=== PATIENT | female | born 1995 | race Two or more races ===

== ENCOUNTER 2024-08-12 14:54 | Emergency (ER) | payer MEDICAID, SELFPAY ==
[2024-08-12 14:56] VITALS: BMI 35.0
[2024-08-12 15:13] VITALS: BP 129/86; PULSE 97; RESP 18; TEMP 37.6; O2SAT 96
--- NOTE | 2024-08-12 15:18 | PD.EDADULT ---
ED General RME/HPI General Chief complaint: General Adult/Misc Complain Stated complaint: GOT SHOT AT DENTIST; NOW FEELS NUMB ON R) SIDE Time Seen by Provider: 08/12/24 15:07 Arrival date/time: 08/12/24 14:54 29-year-old female presents emergency department today stating that she had an injection in her mouth at the dentist today patient reports that immediately she had numbing sensation to the right side of her head and right side of her face patient reports since then symptoms have resolved but wanted to make sure everything is okay Limitations: no limitations Related Data Previous Rx's ?Medication ?Instructions ?Recorded ibuprofen 600 mg tablet 600 mg PO TID PRN Abdominal Pain 04/12/17 #30 tabs cyclobenzaprine 10 mg tablet 10 mg PO TID PRN muscle spasm #30 01/13/19 tabs ibuprofen 800 mg tablet 800 mg PO TID PRN pain #30 tabs 01/13/19 Allergies Allergy/AdvReac Type Severity Reaction Status Date / Time No Known Allergies Allergy Verified 08/12/24 14:58 Review of Systems Review of Systems Systems Reviewed: All systems reviewed, normal except as documented Constitutional Constitutional: Reports system reviewed and no additional complaints, except as documented, Denies fever(s) and Denies headache(s) Eyes Eyes: Reports system reviewed and no additional complaints, except as documented and Denies blurry vision ENT Ears, Nose, Mouth, and Throat: Reports system reviewed and no additional complaints, except as documented, Denies headache(s), Denies nasal congestion and Denies nasal discharge Cardiovascular Cardiovascular: Reports system reviewed and no additional complaints, except as documented, Denies chest pain and Denies dyspnea Respiratory Respiratory: Reports system reviewed and no additional complaints, except as documented, Denies chest congestion, Denies cough and Denies dyspnea Gastrointestinal Gastrointestinal: Reports system reviewed and no additional complaints, except as documented and Denies abdominal pain Integumentary/Breasts Skin/Breast: Reports system reviewed and no additional complaints, except as documented and Denies rash Neurologic Neurologic: Reports system reviewed and no additional complaints, except as documented, Reports as per HPI and Denies headache(s) Psychiatric Psychiatric: Reports system reviewed and no additional complaints, except as documented and Reports other (Paresthesia right side of face) Past Medical History Social History SMOKING STATUS: Never smoker ED Exam General Limitations: Present no limitations General appearance: Present alert and in no apparent distress Head Head exam: Present atraumatic, normocephalic and normal inspection Eye Eye exam: Present normal appearance, PERRL and EOMI; Absent conjunctival injection ENT ENT exam: Present normal exam, normal oropharynx and mucous membranes moist Neck Neck exam: Present normal inspection, full ROM and trachea midline Chest Chest inspection: Present normal inspection and symmetric chest wall rise Respiratory Respiratory exam: Present normal lung sounds bilaterally; Absent respiratory distress Cardiovascular Cardiovascular exam: Present regular rate, normal rhythm and normal heart sounds Abdominal Exam Abdominal exam: Present soft and normal bowel sounds; Absent distention, tenderness, guarding, rebound or rigidity Extremities Exam Extremities exam: Present normal inspection and full ROM Back Exam Back exam: Present normal inspection and full ROM Neurological Exam Neurological exam: Present alert, oriented X3, CN II-XII intact, normal gait and reflexes normal; Absent motor sensory deficit Psychiatric Psychiatric exam: Present normal affect and normal mood Skin Skin exam: Present warm, dry, intact and normal color Course Quality Measures none Vital Signs Vital signs: Vital Signs Temperature 99.6 F 08/12/24 15:13 Pulse Rate 97 08/12/24 15:13 Respiratory Rate 18 08/12/24 15:13 Blood Pressure 129/86 H 08/12/24 15:13 Pulse Oximetry (%) 96 08/12/24 15:13 Oxygen Delivery Method Room Air 08/12/24 15:13 O2 saturation 96 r.a wnl Discharge Plan Plan Patient Disposition: HOME (Self Care) Discharge Disposition comment: stable Prescriptions/Referrals Prescriptions/Med Rec: No Action ibuprofen 600 mg tablet 600 mg PO TID PRN (Reason: Abdominal Pain) Qty: 30 0RF cyclobenzaprine 10 mg tablet 10 mg PO TID PRN (Reason: muscle spasm) Qty: 30 0RF ibuprofen 800 mg tablet 800 mg PO TID PRN (Reason: pain) Qty: 30 0RF Problem List Clinical Impression: Facial paresthesia, Medication reaction Patient/Caregiver Discharge Instructions Education Materials: ED Paraesthesias Additional Instructions: Please follow up with your primary care doctor in the next 24-48hrs for any worsening symptoms return here immediately Print Language: Italian Stand Alone Forms: Charo Award Info., Patient Portal Info Letter PA/[employer] SALES REPRESENTATIVE AND ASSESSOR Supervising Physician PA/[employer] SAL[employer] REPRESENTATIVE AND ASSESSOR Supervising Physician: Dr. gutierrez [facility] Narrative MDM hospital course: 29-year-old female presents emergency department today stating that she had an injection in her mouth at the dentist today patient reports that immediately she had numbing sensation to the right side of her head and right side of her face patient reports since then symptoms have resolved but wanted to make sure everything is okay On exam patient well-appearing patient is not appear ill or toxic no acute distress patient walks with steady gait has no abnormal neurological findings patient reports no headache dizziness or weakness patient has no facial asymmetry Patient discharged home in no distress to follow-up with primary care doctor in the next 24 to 48 hours and for any worsening symptoms to return to the ER immediately Clinical Information Provided by none Medical Records Reviewed [facility] Meds/Rx Considered, not Ordered None Labs/Rad/Tests considered, not Ordered None Chronic Illness/Social Conditions which may negatively complicate care or outcome(s)-explain: None or not applicable EKG EKG not done Lab Interpretation Labs: none Imaging Imaging interpretation: none Medication Administration(s) none Diagnosis Differential diagnosis: Facial numbness, allergic reaction, medication reaction Most likely dx, and/or detailed dx discussion: Medication reaction, anxiety Dispositon Disposition: Discharge Home
== END 2024-08-12 15:25 | disposition home or self-care (01) ==
PROVIDERS: Emergency Provider Family Medicine
DX: R20.2 Paresthesia of skin (principal)
CPT/HCPCS: 99281

== ENCOUNTER → 2024-11-25 | Outpatient (CLI) | payer MEDICAID, SELFPAY ==
--- NOTE | 2024-11-25 10:30 | XR_ITS ---
Examination: Breast ultrasound, unilateral, right complete Date and time of exam: November 25, 2024, 0959 hours INDICATIONS: Right breast lump and tenderness noticed beginning 3 weeks ago Technique: Real-time quick scale ultrasonographic imaging performed right breast including all 4 quadrants as well as nipple retroareolar and axillary region. Findings: 6:00 nodule lobular margins 8 x 5 mm 8:00 nodule circumscribed 5 x 3 mm 10:00 nodule partially indistinct margins 17 x 14 mm IMPRESSION: BI-RADS Category 4: Suspicious for malignancy Suspicious nodule 10 o'clock position right breast, biopsy is needed to exclude breast carcinoma, this nodule is amenable to ultrasound-guided breast biopsy for diagnosis
== END | disposition home or self-care (01) ==
PROVIDERS: Referring Provider Physician Assistant; Visit Provider Physician Assistant
DX: N63.11 Unspecified lump in the right breast, upper outer quadrant (principal)
CPT/HCPCS: 76641